=== PATIENT | male | born 1970 | race Caucasian/White ===

== ENCOUNTER 2017-02-26 15:54 | Emergency (ER) | payer OTHER ==
[~2017-02-26] VITALS: Ht 180.3 cm; Wt 102.0 kg
[~2017-02-26 15:54] MED LIST: ADVAIR 250/501 DISK IH; CLEOCIN300 MG PO; DIABETA5 MG PO; FLEXERIL10 MG PO; GLUCOPHAGE500 MG PO; LEVEMIR FL100 UNITS/ SC; LIDODERM 5% P1 PATCH TD; LISINOPRIL5 MG PO; MOTRIN800 MG PO; NAPROSYN500 MG PO; NORCO 7.5/321 TABLET PO; RANITIDINE HCL150 M1 PO; SIMVASTATIN20 MG PO; SYMBICORT60 INHALAT IH; VALIUM5 MG PO
[2017-02-26 16:54] VITALS: BP 128/30
== END 2017-02-26 16:55 | disposition home or self-care (01) ==
LOC: EME 15:54
DX: S63.502A Unspecified sprain of left wrist, initial encounter (principal); X50.0XXA Overexertion from strenuous movement or load, initial encounter; F17.200 Nicotine dependence, unspecified, uncomplicated
CPT/HCPCS: 73110; 99281; 99284